=== PATIENT | female | born 1970 | race Caucasian/White ===

== ENCOUNTER → 2016-09-11 | Outpatient (CLI) | payer BC | END | disposition home or self-care (01) | LOC: LABWHC1 14:45 | PROVIDERS: ATTEND Family Medicine | DX: E03.9 Hypothyroidism, unspecified (principal) | CPT/HCPCS: 36415; 84443 ==

== ENCOUNTER → 2017-01-17 | Outpatient (CLI) | payer BC ==
--- NOTE | 2017-01-17 10:27 | USB ---
Reason for exam: follow-up at short interval from prior study. History: Patient has history of breast cancer at age 37 and is nulliparous. Family history of breast cancer in maternal aunt. Silicone gel implant in the right breast, January 2009. Mastectomy of the right breast, October 13, 2008. Took hormonal contraceptives for 16 years 2 months beginning at age 21. Took tamoxifen for 5 years beginning at age 38. US Breast RT Right breast ultrasound includes all four quadrants, the retroareolar region and axilla. Finding demonstrate a 4 x 4mm oval, solid lymph node unchanged at 9 o'clock. These results were verbally communicated with the patient and result sheet given to the patient on 01/17/17. ASSESSMENT: Benign, BI-RAD 2 RECOMMENDATION: Follow-up diagnostic mammogram of the right breast in 1 year. Manage patient on a clinical basis.
--- NOTE | 2017-01-17 10:27 | MM ---
Reason for exam: additional evaluation requested from prior study. Last mammogram was performed 1 year ago. History: Patient has history of breast cancer at age 37 and is nulliparous. Family history of breast cancer in maternal aunt. Silicone gel implant in the right breast, January 2009. Mastectomy of the right breast, October 13, 2008. Took hormonal contraceptives for 16 years 2 months beginning at age 21. Took tamoxifen for 5 years beginning at age 38. Physical Findings: Nurse did not find any significant physical abnormalities on exam. MG 3D Diag Mammo W/Cad LT CC and MLO view(s) were taken of the left breast. Prior study comparison: January 14, 2016, left breast MG 3d diag mammo w/cad LT. December 29, 2014, left breast MG diagnostic mammo LT w CAD. The breast tissue is heterogeneously dense. This may lower the sensitivity of mammography. There is no discrete abnormality. No significant new findings when compared with previous films. These results were verbally communicated with the patient and result sheet given to the patient on 01/17/17. ASSESSMENT: Negative, BI-RAD 1 RECOMMENDATION: Follow-up diagnostic mammogram of the left breast in 1 year.
== END | disposition home or self-care (01) ==
LOC: RADMAMWWP 08:57
PROVIDERS: ATTEND Internal Medicine Hematology & Oncology
DX: Z85.3 Personal history of malignant neoplasm of breast (principal); Z90.11 Acquired absence of right breast and nipple; Z98.82 Breast implant status
CPT/HCPCS: 76641; G0206; G0279

== ENCOUNTER → 2018-01-21 | Outpatient (CLI) | payer BC ==
--- NOTE | 2018-01-21 14:21 | MM ---
Reason for exam: additional evaluation requested from prior study. Last mammogram was performed 1 year ago. History: Patient has history of breast cancer at age 37 and is nulliparous. Family history of breast cancer in maternal aunt. Silicone gel implant in the right breast, January 2009. Mastectomy of the right breast, October 13, 2008. Took hormonal contraceptives for 16 years 2 months beginning at age 21. Took tamoxifen for 5 years beginning at age 38. Physical Findings: Nurse did not find any significant physical abnormalities on exam. MG 3D Diag Mammo W/Cad LT CC and MLO view(s) were taken of the left breast. Prior study comparison: January 17, 2017, left breast MG 3d diag mammo w/cad LT. January 14, 2016, left breast MG 3d diag mammo w/cad LT. The breast tissue is extremely dense which could obscure a lesion on mammography. No significant new findings when compared with previous films. These results were verbally communicated with the patient and result sheet given to the patient on 01/21/18. ASSESSMENT: Benign, BI-RAD 2 RECOMMENDATION: Routine screening mammogram of the left breast in 1 year.
== END | disposition home or self-care (01) ==
LOC: RADMAMWWP 13:32
PROVIDERS: ATTEND Internal Medicine Hematology & Oncology
DX: R92.8 Other abnormal and inconclusive findings on diagnostic imaging of breast (principal); Z85.3 Personal history of malignant neoplasm of breast
CPT/HCPCS: 77061; 77065

== ENCOUNTER → 2019-12-26 | Outpatient (CLI) | payer BC | END | disposition home or self-care (01) | LOC: LABWHC1 08:53 | PROVIDERS: ATTEND Obstetrics & Gynecology | DX: Z11.59 Encounter for screening for other viral diseases (principal) | CPT/HCPCS: 87635 ==

== ENCOUNTER 2019-12-30 06:24 | Day surgery (SDC) | payer BC ==
[2019-12-26 12:57] VITALS: BMI 23.0
--- NOTE | 2019-12-29 17:57 | P.HPOB ---
History of Present Illness H&P Date: 12/29/19 Chief Complaint: Menorrhagia with irregular cycle, possible endometrial polyp This is a 49 y.o. female, 0, who presents for dilatation and curettage with hysteroscopy for menorrhagia with irregular cycle and possible endometrial polyp. Pelvic ultrasound showed a uterus measuring 11 x 5.7 x 4.9 cm with possible 7 mm endometrial polyp. Both ovaries are normal. Her menses are occuring every 16-30 days and lasting 5-6 days with the 1st 3-4 days very heavy to the point of changing her pads every hour with some clots. She has been on Tamoxifen in the past for treatment of her breast cancer. OB History: G0. 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 No history of STDs. 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 Review of Systems Constitutional: Denies chills, Denies fever Eyes: denies blurred vision, denies pain Ears, nose, mouth and throat: Denies headache, Denies sore throat Cardiovascular: Denies chest pain, Denies shortness of breath Respiratory: Denies cough Gastrointestinal: Reports bloating, Denies abdominal pain, Denies diarrhea, Denies nausea, Denies vomiting Genitourinary: Reports menorrhagia, Reports vaginal dryness Menstruation: Reports menses variable, Reports period heavy Musculoskeletal: Reports muscle cramps Integumentary: Denies pruritus, Denies rash Neurological: Denies numbness, Denies weakness Psychiatric: Reports anxiety, Reports change in libido, Reports depression Endocrine: Reports flushing Past Medical History Past Medical History: Asthma, Cancer, GERD/Reflux Additional Past Medical History / Comment(s): HX BREAST CANCER WITH MASTECTOMY (2007), PANCREATITS, HEAVY MENSTRUAL PERIODS. Endometriosis History of Any Multi-Drug Resistant Organisms: None Reported Past Surgical History: Breast Surgery Additional Past Surgical History / Comment(s): R. MASTECTOMY,EGD; Laparoscopy- ablation of endometriosis-2004 Past Anesthesia/Blood Transfusion Reactions: Motion Sickness, Postoperative Nausea & Vomiting (PONV) Past Psychological History: Depression Smoking Status: Never smoker Past Alcohol Use History: Rare Past Drug Use History: None Reported - Past Family History Mother Family Medical History: Cancer Additional Family Medical History / Comment(s): SKIN CANCER Medications and Allergies Home Medications Medication Instructions Recorded Confirmed Type Qvar Inhaler 1 puff INHALATION DIRECTED PRN 12/26/19 12/30/19 History buPROPion HCL [Wellbutrin XL] 150 mg PO DAILY 12/26/19 12/30/19 History Allergies Allergy/AdvReac Type Severity Reaction Status Date / Time codeine Allergy Unknown Nausea & Verified 12/30/19 07:12 Vomiting egg AdvReac Unknown Verified 12/30/19 07:12 metoclopramide [From Reglan] AdvReac Nausea & Verified 12/30/19 07:12 Vomiting shellfish derived [Shellfish] AdvReac Nausea & Verified 12/30/19 07:12 Vomiting Exam Osteopathic Statement: *. No significant issues noted on an osteopathic structural exam other than those noted in the History and Physical/Consult. HEENT: within normal limits Heart: regular rate and rhythm Lungs: clear to auscultation bilaterally Abdomen: soft, non-tender Pelvic: uterus mildly tender, anteverted, tilted toward right, no adnexal masses or tenderness Extremities: neg. Veronica's Assessment and Plan (1) Menorrhagia with irregular cycle Current Visit: No Status: Acute Code(s): N92.1 - EXCESSIVE AND FREQUENT MENSTRUATION WITH IRREGULAR CYCLE SNOMED Code(s): 097990990 (2) Endometrial polyp Current Visit: No Status: Acute Code(s): N84.0 - POLYP OF CORPUS UTERI SNOMED Code(s): 65547694 Plan: Proceed with dilatation and curettage with hysteroscopy. I have discussed the risks, benefits, and alternative therapies for the above- mentioned procedure and for both sedation/anesthesia as well as necessary blood products administration, if indicated, as they pertain to this patient. The patient has indicated her understanding and acceptance of the risks and procedures discussed.
[~2019-12-30 06:24] MED LIST: DEXAMETHASONE SOD PHOSPHATE 10 MG/ML 1 ML VIAL IV ONE; HYDROmorphone 0.5 MG/0.5 ML SYRINGE IVP PRN; LACTATED RINGERS 1,000 ML IV SCH; LIDOCAINE 1% (10MG/ML) FOR IV START INTRADERMA PRN; MIDAZOLAM 2 MG/2 ML VIAL IV PRN; ONDANSETRON 4 MG/2 ML VIAL IVP ONE; Pre Op ABX Message 1 EACH MISC MISCELLANE ONE
[2019-12-30] MEDS ORDERED: SCOPOLAMINE 1.5MG/72HR PATCH TRANSDERM ONE (07:13)
[2019-12-30] MEDS ORDERED: LIDOCAINE 1% INJ 10MG/ML (20 ML MDV) ONE (07:22)
[2019-12-30] MEDS ORDERED: MIDAZOLAM 2 MG/2 ML VIAL ONE (07:22)
[2019-12-30] MEDS ORDERED: fentaNYL (PF) 50 MCG/ML 2 ML AMP ONE (07:22)
[2019-12-30] MEDS ORDERED: PROPOFOL 10 MG/ML 20 ML VIAL IV ONE (07:22)
--- NOTE | 2019-12-30 07:52 | P.OP ---
Date of Procedure: 12/30/19 Preoperative Diagnosis: Menorrhagia with irregular cycle Possible endometrial polyp Postoperative Diagnosis: Same Procedure(s) Performed: Dilation and curettage with hysteroscopy Anesthesia: FEDE Surgeon: Krupa Anton Estimated Blood Loss (ml): 5 Pathology: other (Endometrial curettings) Condition: stable Disposition: same day Indications for Procedure: This is a 49 y.o. female, 0, who presents for dilatation and curettage with hysteroscopy for menorrhagia with irregular cycle and possible endometrial polyp. Pelvic ultrasound showed a uterus measuring 11 x 5.7 x 4.9 cm with possible 7 mm endometrial polyp. Both ovaries are normal. Her menses are occuring every 16-30 days and lasting 5-6 days with the 1st 3-4 days very heavy to the point of changing her pads every hour with some clots. She has been on Tamoxifen in the past for treatment of her breast cancer. Operative Findings: Uterus is mid position and sounded to 10 cm. Upon hysteroscopy, some polypoid type tissue is noted along the posterior border. Both tubal ostia are v isualized. A moderate amount of endometrial curettings are obtained. Description of Procedure: The patient is taken to the operating room where she is placed in the dorsal l ithotomy position. She is prepped and draped in the normal sterile fashion. Bladder is drained with a catheter. Examination is performed under anesthesia. Uterus is found to be mid position with no adnexal masses palpated. Next a weighted speculum was placed in the patient's vagina and a right angle retractor was used to grasp the anterior cervix. The cervix is gently dilated with Mauricio dilator and then the uterus is sounded to 10 cm. Cervix is gently dilated further until a hysteroscope could be passed. Hysteroscopy is performed using normal saline. The above noted findings are made and pictures are taken. Hysteroscope was withdrawn and then the cervix is gently dilated further. A polyp forceps was introduced with a small amount of polypoid type tissue obtained. Next a medium-size sharp curet was introduced and sharp curettage was performed until a gritty texture was noted. A moderate amount of endometrial tissue was obtained. Next the single-tooth tenaculum was removed. No bleeding was noted. The specimen was removed. All sponge and needle counts are correct. The patient is then taken to recovery room in stable condition.
[2019-12-30 08:11] VITALS: TEMP 97.6
[2019-12-30] MEDS ORDERED: KETOROLAC 30 MG/ML 1 ML VIAL IVP ONE (08:23)
[2019-12-30] MEDS ORDERED: IBUPROFEN 200 MG TAB PO ONE (09:15)
[2019-12-30 09:25] VITALS: BP 118/72; PULSE 64; RESP 20
== END 2019-12-30 09:42 | disposition home or self-care (01) ==
LOC: OR 06:24
PROVIDERS: ATTEND Obstetrics & Gynecology
DX: N84.0 Polyp of corpus uteri (principal); N92.1 Excessive and frequent menstruation with irregular cycle; J45.909 Unspecified asthma, uncomplicated; K21.9 Gastro-esophageal reflux disease without esophagitis; F32.9 Major depressive disorder, single episode, unspecified; Z90.11 Acquired absence of right breast and nipple; Z91.012 Allergy to eggs; Z91.013 Allergy to seafood; Z88.5 Allergy status to narcotic agent; Z88.8 Allergy status to other drugs, medicaments and biological substances; Z79.899 Other long term (current) drug therapy; Z85.3 Personal history of malignant neoplasm of breast; Z80.8 Family history of malignant neoplasm of other organs or systems
CPT/HCPCS: 81025; 88305; 58558; J2250; J1100; J2405; J2001; J3010; J1885; J2704

== ENCOUNTER → 2020-05-05 | Outpatient (CLI) | payer BC ==
--- NOTE | 2020-05-05 11:16 | MM ---
Reason for exam: additional evaluation requested from prior study. Last mammogram was performed 1 year and 3 months ago. History: Patient has history of breast cancer at age 37 and is nulliparous. Family history of breast cancer in maternal aunt. Silicone gel implant in the right breast, January 2009. Mastectomy of the right breast, October 13, 2008. Took hormonal contraceptives for 16 years 2 months beginning at age 21. Took tamoxifen for 5 years beginning at age 38. Physical Findings: Nurse Summary: 1cm nodule in the left breast at 3 o'clock (nurse mj). MG 3D Diag Mammo W/Cad LT CC and MLO view(s) were taken of the left breast. Prior study comparison: February 05, 2019, left breast MG 3d diag mammo w/cad LT. January 21, 2018, left breast MG 3d diag mammo w/cad LT. The breast tissue is heterogeneously dense. This may lower the sensitivity of mammography. There is no discrete abnormality including area of concern. These results were verbally communicated with the patient and result sheet given to the patient on 05/05/20. ASSESSMENT: Incomplete: need additional imaging evaluation, BI-RAD 0 RECOMMENDATION: Ultrasound of both breasts.
--- NOTE | 2020-05-05 11:17 | USB ---
Reason for exam: additional evaluation requested from abnormal screening. History: Patient has history of breast cancer at age 37 and is nulliparous. Family history of breast cancer in maternal aunt. Silicone gel implant in the right breast, January 2009. Mastectomy of the right breast, October 13, 2008. Took hormonal contraceptives for 16 years 2 months beginning at age 21. Took tamoxifen for 5 years beginning at age 38. US Breast Limited BILAT Technologist: Ayla Burgos Right limited breast ultrasound including focal area of concern, retroareolar and axilla demonstrates a 0.7 x 0.8 x 0.5cm lesion at 9 o'clock, no change. Left limited breast ultrasound including focal area of concern, retroareolar and axilla demonstrates no cystic or solid lesion seen. These results were verbally communicated with the patient and result sheet given to the patient on 05/05/20. ASSESSMENT: Benign, BI-RAD 2 RECOMMENDATION: Follow-up diagnostic mammogram of the left breast in 1 year. Manage patient on a clinical basis.
== END | disposition home or self-care (01) ==
LOC: RADUSWWP 10:09
PROVIDERS: ATTEND Internal Medicine Hematology & Oncology
DX: R92.8 Other abnormal and inconclusive findings on diagnostic imaging of breast (principal); Z85.3 Personal history of malignant neoplasm of breast; Z98.82 Breast implant status
CPT/HCPCS: 77061; 77065

== ENCOUNTER → 2021-05-23 | Outpatient (CLI) | payer BC ==
--- NOTE | 2021-05-24 13:47 | MM ---
Reason for exam: additional evaluation requested from prior study. Last mammogram was performed 1 year and 1 month ago. History: Patient has history of breast cancer at age 37 and is nulliparous. Family history of breast cancer in maternal aunt. Silicone gel implant in the right breast, January 2009. Mastectomy of the right breast, October 13, 2008. Took hormonal contraceptives for 16 years 2 months beginning at age 21. Took tamoxifen for 5 years beginning at age 38. Physical Findings: Nurse did not find any significant physical abnormalities on exam. MG 3D Diag Mammo W/Cad LT CC, MLO, and XCCL view(s) were taken of the left breast. Prior study comparison: May 05, 2020, left breast MG 3d diag mammo w/cad LT. February 05, 2019, left breast MG 3d diag mammo w/cad LT. January 21, 2018, left breast MG 3d diag mammo w/cad LT. January 17, 2017, left breast MG 3d diag mammo w/cad LT. No significant new findings when compared with previous films. These results were verbally communicated with the patient and result sheet given to the patient on 05/23/21. ASSESSMENT: Benign, BI-RAD 2 RECOMMENDATION: Follow-up diagnostic mammogram of the left breast in 1 year.
--- NOTE | 2021-05-24 13:48 | USB ---
Reason for exam: clinical finding. History: Patient has history of breast cancer at age 37 and is nulliparous. Family history of breast cancer in maternal aunt. Silicone gel implant in the right breast, January 2009. Mastectomy of the right breast, October 13, 2008. Took hormonal contraceptives for 16 years 2 months beginning at age 21. Took tamoxifen for 5 years beginning at age 38. US Breast Limited RT Right limited breast ultrasound including focal area of concern, retroareolar and axilla demonstrates a 0.7 x 0.7 x 0.5cm lymph node at 9 o'clock. These results were verbally communicated with the patient and result sheet given to the patient on 05/23/21. ASSESSMENT: Benign, BI-RAD 2 RECOMMENDATION: Follow-up diagnostic mammogram in 1 year. (left breast)
== END | disposition home or self-care (01) ==
LOC: RADMAMWWP 13:24
PROVIDERS: ATTEND Internal Medicine Hematology & Oncology
DX: R92.8 Other abnormal and inconclusive findings on diagnostic imaging of breast (principal); Z85.3 Personal history of malignant neoplasm of breast; Z80.3 Family history of malignant neoplasm of breast; Z90.11 Acquired absence of right breast and nipple
CPT/HCPCS: 77061; 77065

== ENCOUNTER → 2022-07-14 | Outpatient (CLI) | payer BC ==
--- NOTE | 2022-07-14 10:58 | USB ---
Reason for Exam: Follow-up at short interval from prior study. Patient History: Menarche at age 12. Patient has no children. Breast cancer, right, age 37. Hormonal Contraceptives, starting at age 21 for 16 years, 2 months. Tamoxifen for 5 years from age 38 until age 43. 10/13/2008, Mastectomy on the Right side. 01/2009, Implant on the right side. Maternal aunt had breast cancer. Technique: Method: Whole Breast Handheld. Prior Study Comparison: 02/05/2019 Left Diagnostic Mammogram, [facility]. 05/05/2020 Left Diagnostic Mammogram, [facility]. 05/23/2021 Left Diagnostic Mammogram, [facility]. Findings: The whole breast of the right breast, the axilla of the right breast and the retroareolar of the right breast were scanned. No solid or cystic masses are identified. Benign-appearing lymph node is again identified, present 2020. Breast prosthesis is evident. Please also see mammogram report of same date. Overall Assessment: Benign, BI-RAD 2 Management: Screening Mammogram of the left breast in 1 year. A clinical breast exam by your physician is recommended on an annual basis and results should be correlated with mammographic findings. This exam should not preclude additional follow-up of suspicious palpable abnormalities. ??Results were given to the patient verbally at the time of exam. Electronically signed and approved by: Dar Dia D.O. Radiologis
--- NOTE | 2022-07-17 08:35 | MM ---
Reason for Exam: Screening (asymptomatic). Last mammogram was performed 1 year(s) and 2 month(s) ago. Patient History: Menarche at age 12. Patient has no children. Breast cancer, right, age 37. Hormonal Contraceptives, starting at age 21 for 16 years, 2 months. Tamoxifen for 5 years from age 38 until age 43. 10/13/2008, Mastectomy on the Right side. 01/2009, Implant on the right side. Maternal aunt had breast cancer. Prior Study Comparison: 01/17/2017 Left Diagnostic Mammogram, [facility]. 01/21/2018 Left Diagnostic Mammogram, [facility]. 02/05/2019 Left Diagnostic Mammogram, [facility] 05/05/2020 Left Diagnostic Mammogram, [facility]. 05/23/2021 Left Diagnostic Mammogram, [facility]. Tissue Density: Left: The breast tissue is heterogeneously dense. This may lower the sensitivity of mammography. Findings: Analyzed By CAD. There is no suspicious group of microcalcifications. There are 2 new nodular densities upper outer left breast approximately 8 and 5 cm from the nipple. Additional views are recommended. Overall Assessment: Incomplete: need additional imaging evaluation, BI-RAD 0 Management: Diagnostic Mammogram of the left breast. A clinical breast exam by your physician is recommended on an annual basis and results should be correlated with mammographic findings. Electronically signed and approved by: Isaac Burroughs M.D. Radiologis
== END | disposition home or self-care (01) ==
LOC: RADMAMWWP 08:28
PROVIDERS: ATTEND Internal Medicine Hematology & Oncology
DX: Z12.31 Encounter for screening mammogram for malignant neoplasm of breast (principal); Z85.3 Personal history of malignant neoplasm of breast
CPT/HCPCS: 77067

== ENCOUNTER → 2022-07-21 | Outpatient (CLI) | payer BC ==
--- NOTE | 2022-07-21 10:40 | MM ---
Reason for Exam: Follow-up at short interval from prior study. Last screening mammogram was performed less than 1 month ago. Patient History: Menarche at age 12. Patient has no children. Perimenopausal. Breast cancer, right, age 37. Hormonal Contraceptives, starting at age 21 for 16 years, 2 months. Tamoxifen for 5 years from age 38 until age 43. 10/13/2008, Mastectomy on the Right side. 01/2009, Implant on the right side. Maternal aunt had breast cancer. Prior Study Comparison: 05/05/2020 Left Diagnostic Mammogram, [facility]. 05/23/2021 Left Diagnostic Mammogram, [facility]. 07/14/2022 Left MG screen brandon unilateral w/cad, [facility]. Tissue Density: Left: The breast tissue is extremely dense which could obscure a lesion on mammography. Findings: Analyzed By CAD. No distinct new lesion or mass persists on additional views. Overall Assessment: Negative, BI-RAD 1 Management: Screening Mammogram of both breasts in 1 year. Return to routine follow-up. Results were given to the patient verbally at the time of exam. Electronically signed and approved by: Nicholas Wiley M.D.
== END | disposition home or self-care (01) ==
LOC: RADMAMWWP 10:09
PROVIDERS: ATTEND Internal Medicine Hematology & Oncology
DX: R92.8 Other abnormal and inconclusive findings on diagnostic imaging of breast (principal); Z80.3 Family history of malignant neoplasm of breast; Z90.11 Acquired absence of right breast and nipple
CPT/HCPCS: 77061; 77065

== ENCOUNTER → 2022-12-11 | Outpatient (CLI) | payer BC ==
--- NOTE | 2022-12-11 10:24 | BD ---
EXAMINATION TYPE: Axial Bone Density DATE OF EXAM: 12/11/2022 CLINICAL HISTORY: 52 years old Female. ICD-10 CODE: N95.1 POST MENOPAUSAL Height: 67.5 Weight: 162.0 FRAX RISK QUESTIONS: Alcohol (3 or more units per day): no Family History (Parent hip fracture): no Glucocorticoids (More than 3mos): no History of Fracture in Adulthood: Elbow Secondary Osteoporosis: 1. Type 1 Diabetes: no 2. Hyperthyroidism: no 3. Menopause before 45: no 4. Malnutrition: no 5. Chronic liver disease: no Rheumatoid Arthritis: no Current Tobacco Use: no RISK FACTORS HISTORY OF: Hip Fracture (Right/Left): no Spine Fracture: no History of Wrist Fracture: no Surgery to Spine/Hip(right/left)/Wrist (right/left): no Family History of Osteoporosis: no Active: yes Diet low in dairy products/other sources of calcium: no Postmenopausal woman: yes Take estrogen and/or progesterone medications: no Lost more than 2 inches in height since high school: no Frequent falls: no Poor Health: no Hyperparathyroidism: no Adrenal Insufficiency: no MEDICATIONS: Prednisone or other steroids: no Thyroid Medications: no Osteoporosis Medications:no Additional Medications: None Additional History: Breast cancer age 36 with mastectomy and Tamoxifen for 5 years following surgery. EXAM MEASUREMENTS: Bone mineral densitometry was performed using the [employer] System. Bone mineral density as measured about the Lumbar spine is: ----- L1-L4(G/cm2): 1.198 T Score Values are as follows: ----- L1: -0.4 ----- L2: 0.2 ----- L3: 0.4 ----- L4: 0.1 ----- L1-L4: 0.1 Z Score Values are as follows: ----- L1: -0.2 ----- L2: 0.4 ----- L3: 0.6 ----- L4: 0.3 ----- L1-L4: 0.3 Baseline Study Bone mineral density about the R hip (g/cm2): 0.985 Bone mineral density about the L hip (g/cm2): 0.953 T Score values are as follows: -----R Neck: -0.3 -----L Neck: 0.2 -----R Total: -0.2 -----L Total: -0.4 Z Score values are as follows: -----R Neck: 0.4 -----L Neck: 0.8 -----R Total: 0.1 -----L Total: -0.1 Baseline Study FRAX%s: The graph provided illustrates a 7.3% chance for a major osteoporotic fx and a 0.2% chance fo r the hips probability for fx in 10 years time. IMPRESSION: Normal (Values between +1 and -1 indicate normal bone mass). Consider repeating this study in 5 year s or sooner if there is some new clinical indication. NOTE: T-SCORE=SD OF THE YOUNG ADULT MEAN.
== END | disposition home or self-care (01) ==
LOC: RADBDWWP 09:11
PROVIDERS: ATTEND Obstetrics & Gynecology
DX: N95.1 Menopausal and female climacteric states (principal)
CPT/HCPCS: 77080

== ENCOUNTER → 2023-08-03 | Outpatient (CLI) | payer BC ==
--- NOTE | 2023-08-03 08:08 | USB ---
Reason for Exam: Follow-up at short interval from prior study. Patient History: Menarche at age 12. Patient has no children. Perimenopausal. Breast cancer, right, age 37. Hormonal Contraceptives, starting at age 21 for 16 years, 2 months. Tamoxifen for 5 years from age 38 until age 43. 10/13/2008, Mastectomy on the Right side. 01/2009, Implant on the right side. Maternal aunt had breast cancer. Technique: Method: Targeted. Prior Study Comparison: 05/23/2021 Left Diagnostic Mammogram, [facility]. 07/14/2022 Left MG screen brandon unilateral w/cad, [facility]. 07/21/2022 Left MG 3D work up w/cad , [facility]. Findings: The whole breast of the right breast, the axilla of the right breast and the retroareolar of the right breast were scanned. A complete US of all four quadrants of the breast , axilla, and retro-areolar region were reviewed. No solid or cystic masses are identified.. Underlying breast implant. Unchanged lymph node at the 9:00 position, 9 cm from the nipple measuring 8 mm. Overall Assessment: Benign, BI-RAD 2 Management: Diagnostic Breast Ultrasound of the right breast in 1 year. See separate screening mammogram report of the left breast A clinical breast exam by your physician is recommended on an annual basis and results should be correlated with mammographic findings. This exam should not preclude additional follow-up of suspicious palpable abnormalities. Results were given to the patient verbally at the time of exam. Electronically signed and approved by: Sheri Magana M.D. Radiologist
--- NOTE | 2023-08-08 12:13 | MM ---
Reason for Exam: Screening (asymptomatic). Last screening mammogram was performed 12 month(s) ago. Patient History: Menarche at age 12. Patient has no children. Perimenopausal. Breast cancer, right, age 37. Hormonal Contraceptives, starting at age 21 for 16 years, 2 months. Tamoxifen for 5 years from age 38 until age 43. 10/13/2008, Mastectomy on the Right side. 01/2009, Implant on the right side. Maternal aunt had breast cancer. Prior Study Comparison: 05/23/2021 Left Diagnostic Mammogram, [facility]. 07/14/2022 Left MG screen brandon unilateral w/cad, [facility]. 07/21/2022 Left MG 3D work up w/cad , [facility]. Tissue Density: The breast tissue is extremely dense which could obscure a lesion on mammography. Findings: Analyzed By CAD. There is no suspicious group of microcalcifications or new suspicious mass. Overall Assessment: Negative, BI-RAD 1 Management: Screening Mammogram of the left breast in [address] [facility] will attempt to contact patient to return for supplemental views and ultrasound if indicated. Patient should continue monthly self-breast exams. A clinical breast exam by your physician is recommended on an annual basis. This exam should not preclude additional follow-up of suspicious palpable abnormalities. Note on Zoey scores and lifetime risk: 1. A Zoey score greater than 3% is considered moderate risk. If this is the case, consider specialist referral to assess eligibility for a risk reducing agent. 2. If overall lifetime risk for the development of breast cancer is 20% or higher, the patient may qualify for future screening with alternating mammogram and breast MRI. Electronically signed and approved by: Bucky Corea DO
== END | disposition home or self-care (01) ==
LOC: RADMAMWWP 07:16
PROVIDERS: ATTEND Internal Medicine Hematology & Oncology
DX: Z12.31 Encounter for screening mammogram for malignant neoplasm of breast (principal); Z85.3 Personal history of malignant neoplasm of breast; Z80.3 Family history of malignant neoplasm of breast; Z98.82 Breast implant status
CPT/HCPCS: 77067

== ENCOUNTER → 2024-08-11 | Outpatient (CLI) | payer BC ==
--- NOTE | 2024-08-11 10:34 | USB ---
Reason for Exam: Follow-up at short interval from prior study. Patient History: Menarche at age 12. Patient has no children. Postmenopausal. Breast cancer, right, age 37. Hormonal Contraceptives, starting at age 21 for 16 years, 2 months. Tamoxifen for 5 years from age 38 until age 43. 10/13/2008, Mastectomy on the Right side. 01/2009, Implant on the right side. Maternal aunt had breast cancer. Technique: Method: Whole Breast Handheld. Prior Study Comparison: 07/14/2022 Left MG screen brandon unilateral w/cad, [facility]. 07/21/2022 Left MG 3D work up w/cad LT, [facility]. 08/03/2023 Bilateral MG 3D screening mammo w/cad, [facility]. 08/03/2023 Right US breast RT, [facility]. Findings: The whole breast of the right breast, the axilla of the right breast and the retroareolar of the right breast were scanned. Right breast prosthesis is evident. At the 9:00 position 9 cm in the nipple there is a stable appearing 0.7 x 0.4 x 0.8 cm node cortex 0.13 cm. This is present previously. Overall Assessment: Benign, BI-RAD 2 Electronically signed and approved by: Dar Dia D.O. Radiologis
--- NOTE | 2024-08-15 19:30 | MM ---
Reason for Exam: Screening (asymptomatic). Last screening mammogram was performed 12 month(s) ago. Patient History: Menarche at age 12. Patient has no children. Postmenopausal. Breast cancer, right, age 37. Hormonal Contraceptives, starting at age 21 for 16 years, 2 months. Tamoxifen for 5 years from age 38 until age 43. 10/13/2008, Mastectomy on the Right side. 01/2009, Implant on the right side. Maternal aunt had breast cancer. Prior Study Comparison: 07/14/2022 Left MG screen brandon unilateral w/cad, [facility]. 07/21/2022 Left MG 3D work up w/cad LT, [facility]. 08/03/2023 Bilateral MG 3D screening mammo w/cad, [facility]. Tissue Density: Left: The breasts are heterogeneously dense, which may obscure small masses. Findings: Analyzed By CAD. There is no suspicious group of microcalcifications or new suspicious mass in the breast. Unchanged global asymmetry inferior MLO view. Overall Assessment: Benign, BI-RAD 2 Management: Screening Mammogram of the left breast in 1 year. Patient should continue monthly self-breast exams. A clinical breast exam by your physician is recommended on an annual basis. This exam should not preclude additional follow-up of suspicious palpable abnormalities. [facility], , 08/15/2024 6:51 PM. Electronically signed and approved by: Sheri Magana M.D. Radiologist
== END | disposition home or self-care (01) ==
LOC: RADMAMWWP 09:49
PROVIDERS: ATTEND Internal Medicine Hematology & Oncology
DX: Z12.31 Encounter for screening mammogram for malignant neoplasm of breast (principal); R92.333 Mammographic heterogeneous density, bilateral breasts; Z78.0 Asymptomatic menopausal state; Z85.3 Personal history of malignant neoplasm of breast; Z80.3 Family history of malignant neoplasm of breast; Z44 Encounter for fitting and adjustment of external prosthetic device
CPT/HCPCS: 77067